=== PATIENT | male | born 1950 | race Caucasian/White ===

== ENCOUNTER 2016-06-01 10:42 | Emergency (ER) | payer MEDICARE ==
[~2016-06-01] VITALS: Ht 182.9 cm; Wt 72.0 kg
[~2016-06-01 10:42] MED LIST: COZA100T PO; GABA600T PO; OXYC1SOL5 PO; ULTR50TA PO; XANA2TAB2 PO
[2016-06-01 10:44] VITALS: BP 139/73; PULSE 91; RESP 15; TEMP 97.9; O2SAT 98
[2016-06-01 11:14] LABS: AUTOMATED NEUTROPHIL # 6.6 TH/MM3 (1.8-7.7); BASOPHIL # 0.1 TH/MM3 (0-0.2); BASOPHIL % 1.1 % (0.0-2.0); EOSINOPHIL # 0.5 TH/MM3 (0-0.4); HEMATOCRIT 43.2 % (39.0-51.0); HEMO FLAGS DIFF FINAL; LYMPH % 21.6 % (9.0-44.0); LYMPHOCYTE # 2.2 TH/MM3 (1.0-4.8); MEAN CELL VOLUME 86.9 FL (80.0-100.0); MEAN CORPUSCULAR HEMOGLOBIN 30.6 PG (27.0-34.0); MEAN CORPUSCULAR HGB CONC 35.3 % (32.0-36.0); MONO % 7.5 % (0.0-8.0); NEUT % 64.8 % (16.0-70.0); PLATELET COUNT 308 TH/MM3 (150-450); RED BLOOD COUNT 4.97 MIL/MM3 (4.50-5.90); WHITE BLOOD COUNT 10.2 TH/MM3 (4.0-11.0)
[2016-06-01 11:27] LABS: BLOOD, URINE NEG (NEG); GLUCOSE,URINE NEG (NEG); KETONE, URINE NEG (NEG); NITRITE,URINE NEG (NEG); URINE COLOR COLORLESS (YELLW/STRAW)
[2016-06-01 11:28] LABS: COMMENT (UR) CULT NOT INDICATED; CULTURE IF INDICATED CULT NOT INDICATED
[2016-06-01 11:31] LABS: ALT (GPT) 25 U/L (12-78); ANION GAP 6 MEQ/L (5-15); AST (GOT) 16 U/L (15-37); BLOOD UREA NITROGEN 28 MG/DL (7-18); CHLORIDE 105 MEQ/L (98-107); GLOMERULAR FILTRATION RATE 54 ML/MIN (>89); POTASSIUM 4.7 MEQ/L (3.5-5.1); SODIUM (NA) 140 MEQ/L (136-145)
[2016-06-01 11:33] LABS: ALKALINE PHOSPHATASE 61 U/L (45-117); TOTAL BILIRUBIN ADULT 0.4 MG/DL (0.2-1.0)
[2016-06-01 11:33] LABS: AMPHETAMINE, URINE NEG (NEG); BARBITURATES, URINE NEG (NEG); COCAINE, URINE NEG (NEG)
--- NOTE | 2016-06-01 11:55 | PD ---
HPI Chief Complaint: Psychiatric Symptoms Time Seen by Provider: 11:51 Travel History International Travel<30 days: No Contact w/Intl Traveler<30days: No Traveled to known affect area: No History of Present Illness HPI 65 show male brought in by his and sister with history of increasing confusion, agitation, and violent outbursts. Patient has a history of IV drug use in the distant past for which she used to take methadone for approximately 30 years prior to moving here from [place]. Prior to moving down here from [place] he weaned himself off his methadone. Patient also has a history of lower back pain with also required the methadone in the past but currently he has no complaints of pain. His and sister are concerned as the patient's tends to talk to himself frequently, is smoking cigarettes that he forgets he has and sousa holes in the carpet and bed, and forgets to set things off like the stove, microwave, running water etc. Patient seen his primary care physician as well as his neurologist, including an MRI for question of Alzheimer's, and by their report nothing was found unusual. He was referred here for psychiatric evaluation. He is currently voluntary. He has no medical complaints. He has no known drug allergies. He takes losartan for his hypertension and Xanax. PFSH Past Medical History Cardiovascular Problems: Yes Diabetes: Yes Social History Alcohol Use: Yes Tobacco Use: Yes Substance Use: No Allergies-Medications (Allergen,Severity, Reaction): Coded Allergies: No Known Allergies (Unverified , 06/01/16) Reported Meds & Prescriptions Reported Meds & Active Scripts Active Oxycodone/Acetaminophen 10 mg/325 mg 10 mg/325 mg Tab 1 Tab PO Q6HR PRN Reported Alprazolam 2 Mg Tab 2 Mg PO Q8 Cozaar (Losartan Potassium) 100 Mg Tab 100 Mg PO DAILY Ultram (Tramadol HCl) 50 Mg Tab 50 Mg PO Q4H PRN Gabapentin 600 Mg Tab 600 Mg PO TID Review of Systems Except as stated in HPI: all other systems reviewed are Neg General / Constitutional: No: Fever Eyes: No: Visual changes HENT: No: Headaches Cardiovascular: No: Chest Pain or Discomfort Respiratory: No: Shortness of Breath Gastrointestinal: No: Abdominal Pain Genitourinary: No: Dysuria Musculoskeletal: No: Pain Skin: No Rash Neurologic: No: Weakness Psychiatric: No: Depression Endocrine: No: Polydipsia Hematologic/Lymphatic: No: Easy Bruising Physical Exam Narrative GENERAL: Patient appears mildly agitated but in no acute distress. He is thin. SKIN: Warm and dry. Normal color. Normal turgor. HEAD: Atraumatic. Normocephalic. EYES: Pupils equal and round. No scleral icterus. No injection or drainage. ENT: No nasal bleeding or discharge. Mucous membranes pink and moist. Pharynx appears normal. NECK: Trachea midline. No JVD. Supple nontender. CARDIOVASCULAR: Regular rate and rhythm. RESPIRATORY: No accessory muscle use. Clear to auscultation. Breath sounds equal bilaterally. GASTROINTESTINAL: Abdomen soft, non-tender, nondistended. Hepatic and splenic margins not palpable. MUSCULOSKELETAL: Extremities without clubbing, cyanosis, or edema. No obvious deformities. NEUROLOGICAL: Awake and alert. No obvious cranial nerve deficits. Motor grossly within normal limits. Five out of 5 muscle strength in the arms and legs. Normal speech. PSYCHIATRIC: Appropriate mood and affect; insight and judgment normal. Data Data Last Documented VS Vital Signs Date Time Temp Pulse Resp B/P Pulse Ox O2 Delivery O2 Flow Rate FiO2 06/01/16 10:44 97.9 91 15 139/73 98 Orders Complete Blood Count With Diff (06/01/16 11:02) Comprehensive Metabolic Panel (06/01/16 11:02) Urinalysis - C+S If Indicated (06/01/16 11:02) Drug Screen, Random Urine (06/01/16 11:02) Alcohol (Ethanol) (06/01/16 11:02) Psych Screen (06/01/16 11:02) Labs Laboratory Tests Test 06/01/16 06/01/16 11:00 11:10 White Blood Count 10.2 TH/MM3 Red Blood Count 4.97 MIL/MM3 Hemoglobin 15.2 GM/DL Hematocrit 43.2 % Mean Corpuscular Volume 86.9 FL Mean Corpuscular Hemoglobin 30.6 PG Mean Corpuscular Hemoglobin 35.3 % Concent Red Cell Distribution Width 13.0 % Platelet Count 308 TH/MM3 Mean Platelet Volume 7.3 FL Neutrophils (%) (Auto) 64.8 % Lymphocytes (%) (Auto) 21.6 % Monocytes (%) (Auto) 7.5 % Eosinophils (%) (Auto) 5.0 % Basophils (%) (Auto) 1.1 % Neutrophils # (Auto) 6.6 TH/MM3 Lymphocytes # (Auto) 2.2 TH/MM3 Monocytes # (Auto) 0.8 TH/MM3 Eosinophils # (Auto) 0.5 TH/MM3 Basophils # (Auto) 0.1 TH/MM3 CBC Comment DIFF FINAL Differential Comment Sodium Level 140 MEQ/L Potassium Level 4.7 MEQ/L Chloride Level 105 MEQ/L Carbon Dioxide Level 29.0 MEQ/L Anion Gap 6 MEQ/L Blood Urea Nitrogen 28 MG/DL Creatinine 1.33 MG/DL Estimat Glomerular Filtration 54 ML/MIN Rate Random Glucose 90 MG/DL Calcium Level 10.1 MG/DL Total Bilirubin 0.4 MG/DL Aspartate Amino Transf 16 U/L (AST/SGOT) Alanine Aminotransferase 25 U/L (ALT/SGPT) Alkaline Phosphatase 61 U/L Total Protein 7.8 GM/DL Albumin 4.4 GM/DL Ethyl Alcohol Level LESS THAN 3 MG/DL Urine Color COLORLESS Urine Turbidity CLEAR Urine pH 7.0 Urine Specific [place] 1.002 Urine Protein NEG mg/dL Urine Glucose (UA) NEG mg/dL Urine Ketones NEG mg/dL Urine Occult Blood NEG Urine Nitrite NEG Urine Bilirubin NEG Urine Urobilinogen LESS THAN 2.0 MG/DL Urine Leukocyte Esterase NEG Urine RBC LESS THAN 1 /hpf Microscopic Urinalysis Comment CULT NOT INDICATED Urine Opiates Screen NEG Urine Barbiturates Screen NEG Urine Amphetamines Screen NEG Urine Benzodiazepines Screen NEG Urine Cocaine Screen NEG Urine Cannabinoids Screen NEG MDM Medical Decision Making Medical Screen Exam Complete: Yes Emergency Medical Condition: Yes Differential Diagnosis Psychiatric symptoms. Confusion. Agitation. Violent outbursts. Narrative Course Patient is medically stable at time of exam. Labs ordered for psychiatric protocol. Labs are within normal limits. Patient is medically cleared for psychiatric evaluation. Diagnosis Primary Impression: Medical clearance for psychiatric admission Condition: Stable Vinnie Becerra Jun 01, 2016 11:55
[2016-06-01 15:10] VITALS: BP 150/92; PULSE 88; RESP 18; TEMP 98.6; O2SAT 95
[2016-06-01] MEDS ORDERED: SERO25TA PO (15:27)
[2016-06-01] MEDS ORDERED: XANA1TAB2 PO (15:27)
[2016-06-01 22:21] VITALS: BP 154/72; PULSE 72; RESP 18; O2SAT 98
[2016-06-02 02:34] VITALS: BP 137/73; PULSE 84; RESP 20; O2SAT 98
[2016-06-02 06:15] VITALS: BP 152/91; PULSE 115; RESP 18; O2SAT 96
--- NOTE | 2016-06-02 10:19 | PD ---
History of Present Illness Chief Complaint: Psychiatric Symptoms Time Seen by Provider: 09:00 Travel History International Travel<30 Days: No Contact w/Intl Traveler<30days: No Known affected area: No Legal Status Legal Status: Voluntary History of Present Illness: History of Present Illness 65 year old male with no previous psychiatric history and past history of IV substance use disorder brought in by his and sister for psychiatric evaluation. The family reported a history of increasing confusion, agitation, and violent outbursts, talking to himself, smoking in the house, forgetting to use the microwave, as well as turning the faucets on and leaving them running. These changes have been happening over the past several months.He has been evaluated and followed by his PCP DR. Pantoja as well as by a neurologist. The reports that they have not found any positive findings including having ruled out dementia. His PCP has begun to taper him off Xanax which he has taken for many years as well as initiated Seroquel in low doses. She reports that she has been trying to lower the Xanax prescribed to hiom. . He also took methadone for almost 30 years and weaned himself off one year ago. There are no other current stressors. I met with patient's and patient was seen . Patient was monitored in J pod overnight. There were no significant behavioral concerns. patient did urinate on the floor. When asked why he did so he states " I needed to go to the [place] and I did not want to urinate on myself". As per record review no previous contact with [facility] psychiatry. He is alert, oriented x 4, calm and engaging. Speech is clear, logical and goal directed. he did not exhibit any difficulties in understanding or sharing his thoughts with me. He did not present any thought process or content impairment. No hallucinations, no delusions and no paranoia. Denies depression. Some anxiety There was no significant depressive or anxious symptoms present. No suicidal or homicidal ideation, intent or plan. He was able to spell the word " world" backwards. Recall is 3 out of 3 and 2 out of 3. In terms of behaviors which family have reported the patient states " They get on my case for smoking in the house. It's my house and I don't see a problem with it.". Patient has a history of IV drug use in the distant past for which she used to take methadone for approximately 30 years prior to moving here from [place]. Prior to moving down here from [place] he weaned himself off his methadone. He was referred here for psychiatric evaluation. He is currently voluntary. He has no medical complaints. He has no known drug allergies. He takes losartan for his hypertension and Xanax. PFSH Past Medical History Cardiovascular Problems: Yes Diabetes: Yes Psychiatric History Psychiatric History Hx Psychiatric Treatment: No hx of inpatietn tx. Has taken Xanax for many years. History of Inpatient Treatment: No Guns or firearms in home: No Social History Born and raised in [place]. x1 for 29 years. Lives with and his sister. 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 Moved to [place] 1 year ago. Hx Alcohol Use: Yes Hx Tobacco Use: Yes Hx Substance Use: Yes Substance Use Type: Heroin (In distant past. On Methadone x 30 years.) Hx of Substance Use Treatment: No Family Psychiatric History Negative Allergies-Medications (Allergen,Severity, Reaction): Coded Allergies: No Known Allergies (Unverified , 06/01/16) Reported Meds & Prescriptions Reported Meds & Active Scripts Active Reported Xanax (Alprazolam) 1 Mg Tab 1 Mg PO Q6H PRN Seroquel (Quetiapine Fumarate) 25 Mg Tab 25 Mg PO BID Review of Systems Except as stated in HPI: all other systems reviewed are Neg Constitutional: DENIES: Diaphoretic episodes, Fatigue, Fever, Weight gain, Weight loss, Chills, Dizziness, Change in appetite, Night Sweats Psychiatric: COMPLAINS OF: Anxiety, Mood changes Exam Alert: Yes [place]: Person (ox4) Mood: Anxious Affect: Euthymic Speech: Clear, Logical Eye Contact: Normal Memory Intact: Comment (no gross abnormality) Delusions: No Suicidal: Ideation (denies any) Homicidal: Ideation (denies any) Insight/Judgement Fair. Not impaired. MDM Medical Decision Making Medical Record Reviewed: Yes Assessment/Plan 65 year old male under a voluntary status for evaluation of changes in behavior of several months duration. The patient has been monitored in J pod overnight. He has not demonstrated any agitation or any significant psychiatric symptomatology that would indicate need for inpatient psychiatric treatment. He has had an evaluation by a neurologist to rule out dementia which was ruled out by MRI. His PCP is titrating his medications. The family is not satisfied with the findings. I have recommended that he be followed up by outpatient psychiatrist for medications as well as with his PCP.. was provided with list of area psychiatrist as well as advised not to make any changes to his medications without approval of his physician. Orders Complete Blood Count With Diff (06/01/16 11:02) Comprehensive Metabolic Panel (06/01/16 11:02) Urinalysis - C+S If Indicated (06/01/16 11:02) Drug Screen, Random Urine (06/01/16 11:02) Alcohol (Ethanol) (06/01/16 11:02) Psych Screen (06/01/16 11:02) Diet Regular Basic (06/01/16 Dinner) Diet Regular Basic (06/02/16 Breakfast) Diet Regular Basic (06/02/16 Lunch) Results Vital Signs Date Time Temp Pulse Resp B/P Pulse Ox O2 Delivery O2 Flow Rate FiO2 06/02/16 06:15 115 18 152/91 96 06/02/16 02:34 84 20 137/73 98 06/01/16 22:21 72 18 154/72 98 06/01/16 15:10 98.6 88 18 150/92 95 Room Air 06/01/16 10:44 97.9 91 15 139/73 98 Laboratory Tests Test 06/01/16 06/01/16 11:00 11:10 White Blood Count 10.2 Red Blood Count 4.97 Hemoglobin 15.2 Hematocrit 43.2 Mean Corpuscular Volume 86.9 Mean Corpuscular Hemoglobin 30.6 Mean Corpuscular Hemoglobin 35.3 Concent Red Cell Distribution Width 13.0 Platelet Count 308 Mean Platelet Volume 7.3 Neutrophils (%) (Auto) 64.8 Lymphocytes (%) (Auto) 21.6 Monocytes (%) (Auto) 7.5 Eosinophils (%) (Auto) 5.0 Basophils (%) (Auto) 1.1 Neutrophils # (Auto) 6.6 Lymphocytes # (Auto) 2.2 Monocytes # (Auto) 0.8 Eosinophils # (Auto) 0.5 Basophils # (Auto) 0.1 CBC Comment DIFF FINAL Differential Comment Sodium Level 140 Potassium Level 4.7 Chloride Level 105 Carbon Dioxide Level 29.0 Anion Gap 6 Blood Urea Nitrogen 28 Creatinine 1.33 Estimat Glomerular Filtration 54 Rate Random Glucose 90 Calcium Level 10.1 Total Bilirubin 0.4 Aspartate Amino Transf 16 (AST/SGOT) Alanine Aminotransferase 25 (ALT/SGPT) Alkaline Phosphatase 61 Total Protein 7.8 Albumin 4.4 Ethyl Alcohol Level LESS THAN 3 Urine Color COLORLESS Urine Turbidity CLEAR Urine pH 7.0 Urine Specific [place] 1.002 Urine Protein NEG Urine Glucose (UA) NEG Urine Ketones NEG Urine Occult Blood NEG Urine Nitrite NEG Urine Bilirubin NEG Urine Urobilinogen LESS THAN 2.0 Urine Leukocyte Esterase NEG Urine RBC LESS THAN 1 Microscopic Urinalysis Comment CULT NOT INDICATED Urine Opiates Screen NEG Urine Barbiturates Screen NEG Urine Amphetamines Screen NEG Urine Benzodiazepines Screen NEG Urine Cocaine Screen NEG Urine Cannabinoids Screen NEG Diagnosis Primary Impression: Medical clearance for psychiatric admission Additional Impression: Anxiety Psychiatrically Cleared: Yes Med/ Other Pt Specific Info: No Change to Meds Disposition: 01 DISCHARGE HOME Condition: Stable Problem Qualifiers Rasheeda Tran Jun 02, 2016 10:19
== END 2016-06-02 11:21 | disposition home or self-care (01) ==
LOC: NEPJ 10:42
DX: F41.9 Anxiety disorder, unspecified (principal); I10 Essential (primary) hypertension; F17.210 Nicotine dependence, cigarettes, uncomplicated
CPT/HCPCS: 80053; 80307; 80320; 81001; 85025; 99283